=== PATIENT | male | born 1995 | race Caucasian/White ===

== ENCOUNTER 2020-04-24 12:22 | Emergency (ER) | payer OTHER ==
[2020-04-24] MEDS ORDERED: NORMAL SALINE 1000 ML 1,000 ML IV ONE (12:59)
[2020-04-24] MEDS ORDERED: LOPERAMIDE HCL 2 MG CAPSULE PO ONE (12:59)
--- NOTE | 2020-04-24 12:59 | ER Document Report ---
ED GI/ - General Chief Complaint: Diarrhea Stated Complaint: DIARRHEA Time Seen by Provider: 04/24/20 12:45 Notes: CHIEF COMPLAINT: Diarrhea for 1 day HPI: 25-year-old male presenting to the emergency department for evaluation of multiple episodes of diarrhea over the last 24 hours. States he has had at least 24 episodes of diarrhea. Patient states that he did recently moved here from [place]. 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 Denies nausea vomiting. Denies fever. States that he does have slight lower abdominal soreness from all the episodes of diarrhea. ROS: See HPI - all other systems were reviewed and are otherwise negative Constitutional: no fever Eyes: no drainage, no blurred vision ENT: no runny nose, no sore throat Cardiovascular: no chest pain Resp: no SOB, no cough GI: no vomiting, + diarrhea, + abdominal pain : no dysuria Integumentary: no rash Allergy: no hives Musculoskeletal: no extremity pain or swelling Neurological: no numbness/tingling, no weakness MEDICATIONS: I agree with the patient medications as charted by the RN. ALLERGIES: I agree with the allergies as charted by the RN. PAST MEDICAL HISTORY/PAST SURGICAL HISTORY: Reviewed and agree as charted by RN. SOCIAL HISTORY: Reviewed and agree as charted by RN. FAMILY HISTORY: No significant familial comorbid conditions directly related to patient complaint EXAM: Reviewed vital signs as charted by RN. CONSTITUTIONAL: Alert and oriented and responds appropriately to questions. Well-appearing; well-nourished HEAD: Normocephalic; atraumatic EYES: PERRL; Conjunctivae clear, sclerae non-icteric ENT: normal nose; no rhinorrhea; moist mucous membranes; pharynx without lesions noted, no uvula edema or deviation, no tonsillar hypertrophy, phonation normal NECK: Supple without meningismus; non-tender; no cervical lymphadenopathy, no masses CARD: Tachycardic; no murmurs, no clicks, no rubs, no gallops; symmetric distal pulses RESP: Normal chest excursion without splinting or tachypnea; breath sounds clear and equal bilaterally; no wheezes, no rhonchi, no rales, pulse oximetry 98% on room air not hypoxic ABD/GI: Normal bowel sounds; non-distended; soft, non-tender, no rebound, no guarding; no palpable organomegaly or masses. BACK: The back appears normal and is non-tender to palpation, there is no CVA tenderness EXT: Normal ROM in all joints; non-tender to palpation; no cyanosis, no effusions, no edema SKIN: Normal color for age and race; warm; dry; good turgor; no acute lesions noted NEURO: Moves all extremities equally; Motor and sensory function intact PSYCH: The patient's mood and manner are appropriate. Grooming and personal hygiene are appropriate. MDM: 25-year-old male with multiple episodes of diarrhea. No fever. No focal abdominal pain. States he has had greater than 24 episodes of watery type diarrhea does work in a chicken factory also has recently come from [place]. Will test patient for COVID. Patient believes he may give us a stool specimen, has not had recent antibiotics to suggest C. difficile. Hydrate check electrolytes reassess - Related Data Allergies/Adverse Reactions: No Known Allergies Allergy (Verified 04/24/20 13:08) Past Medical History - Social History Smoking Status: Unknown if Ever Smoked Family History: Reviewed & Not Pertinent Physical Exam - Vital signs Vitals: Temp Pulse Resp BP Pulse Ox 99.4 F 103 H 14 130/71 H 99 04/24/20 12:30 04/24/20 12:30 04/24/20 12:30 04/24/20 12:30 04/24/20 12:30 Course - Re-evaluation Re-evalutation: 04/24/20 14:51 Patient lab work does not show acute emergent abnormalities. C. difficile screening negative. Stool culture pending. Will treat symptomatically, Imodium, hydration, follow-up PCP. Patient will be considered a person under investigation quarantine 14 days or until COVID study results - Vital Signs Vital signs: Temp Pulse Resp BP Pulse Ox 99.4 F 103 H 14 130/71 H 99 04/24/20 12:51 04/24/20 12:30 04/24/20 12:30 04/24/20 12:30 04/24/20 12:30 - Laboratory Result Diagrams: 04/24/20 13:30 04/24/20 13:30 Laboratory results interpreted by me: 04/24/20 13:30 Lymph % (Auto) 7.5 L Seg Neutrophils % 81.6 H Discharge - Discharge Clinical Impression: Person under investigation for COVID-19 Diarrhea Qualifiers: Diarrhea type: unspecified type Qualified Code(s): R19.7 - Diarrhea, unspecified Condition: Stable Disposition: HOME, SELF-CARE Instructions: Diarrhea, Nonspecific ([facility]) Additional Instructions: Continue to hydrate well at home. Take Imodium for any recurrent diarrhea. Your stool studies are pending and you will be called if there results are abnormal. Your COVID study is pending you are to be considered a person under investigation at this time, quarantine at home for 14 days or until you have a negative test result. Forms: Return to Work Referrals: ANTONY KHOURY MD [COMMUNITY BASED STAFF] - Follow up as needed
[2020-04-24 14:02] LABS: ALKALINE PHOSPHATASE 88 U/L (38-126); ANION GAP 9 (5-19); ASPARTATE AMINO TRANSFERASE 33 U/L (17-59); BILIRUBIN,TOTAL 0.6 mg/dL (0.2-1.3); BLOOD UREA NITROGEN 10 mg/dL (7-20); CALCIUM 9.9 mg/dL (8.4-10.2); CARBON DIOXIDE 26 mmol/L (22-30); CHLORIDE 104 mmol/L (98-107); GLUCOSE 99 mg/dL (75-110); TOTAL PROTEIN 7.9 g/dL (6.3-8.2)
[2020-04-24 14:16] LABS: ABSOLUTE EOSINOPHILS # (AUTO) 0.1 10^3/uL (0.0-0.6); ABSOLUTE LYMPHOCYTES (AUTO) 0.7 10^3/uL (0.5-4.7); ABSOLUTE MONOCYTES (AUTO) 0.9 10^3/uL (0.1-1.4); ABSOLUTE NEUT (AUTO) 7.5 10^3/uL (1.7-8.2); BASOPHILS % (AUTO) 0.4 % (0-2); EOSINOPHILS % (AUTO) 1.2 % (0-6); HEMATOCRIT 48.3 % (37.9-51.0); HEMOGLOBIN 16.7 g/dL (13.5-17.0); LYMPHOCYTES % (AUTO) 7.5 % (13-45); MEAN CORPUSCULAR HGB CONC 34.5 g/dL (32.0-36.0); MEAN CORPUSCULAR VOLUME 93 fl (80-97); MONOCYTES % (AUTO) 9.3 % (3-13); PLATELET COUNT 258 10^3/uL (150-450); RED BLOOD COUNT 5.22 10^6/uL (4.35-5.55); RED CELL DISTRIBUTION WIDTH 13.5 % (11.5-14.0); SEGMENTED NEUTROPHILS % (AUTO) 81.6 % (42-78); TOTAL CELLS COUNTED % (AUTO) 100 %; WHITE BLOOD COUNT 9.2 10^3/uL (4.0-10.5)
[2020-04-24 14:24] LABS: APPEARANCE,URINE SLIGHTLY-CLOUDY; BILIRUBIN,URINE NEGATIVE (NEGATIVE); CALCIUM OXALATE CRYSTALS,URINE FEW /HPF; COLOR,URINE YELLOW; GLUCOSE, URINE NEGATIVE (NEGATIVE); KETONES,URINE NEGATIVE (NEGATIVE); LEUKOCYTE ESTERASE,URINE NEGATIVE (NEGATIVE); NITRITE,URINE NEGATIVE (NEGATIVE); PROTEIN,URINE NEGATIVE (NEGATIVE); URINE SPECIFIC GRAVITY 1.029; UROBILINOGEN,URINE NEGATIVE mg/dL (<2.0)
[2020-04-24 14:38] LABS: C DIFFICILE GDH NEGATIVE (NEGATIVE)
[2020-04-24 15:51] VITALS: BP 112/66
== END 2020-04-24 15:53 | disposition home or self-care (01) ==
LOC: ER 12:22
DX: Z20.828 Contact with and (suspected) exposure to other viral communicable diseases (principal); R19.7 Diarrhea, unspecified; R10.30 Lower abdominal pain, unspecified; R10.9 Unspecified abdominal pain
CPT/HCPCS: 99284; 96360; 36415; 87045; 87205; 83690; 85025; 87635; 80053; 81001; 87324; 87449; J7030; C9803